=== PATIENT | female | born 1965 | race Caucasian/White ===

== ENCOUNTER 2021-05-05 09:07 | Outpatient (CLI) | payer BC ==
[2021-05-05] VITALS (7 sets, daily range): BP systolic 119–134; BP diastolic 62–75; PULSE 44–58; TEMP 97.9
[~2021-05-05] VITALS: Ht 180.3 cm; Wt 96.8 kg
[2021-05-05] MEDS ORDERED: MIRAPEX ER1.5 MG PO (09:48)
[2021-05-05] MEDS ORDERED: SINGULAIR 110 MG/TAB PO (09:49)
[2021-05-05] MEDS ORDERED: DESYREL 50MG50 MG PO (09:49)
[2021-05-05] MEDS ORDERED: XYZAL5 MG PO (09:49)
[2021-05-05] MEDS ORDERED: NEURONTIN100 MG/CAP PO (09:50)
[2021-05-05] MEDS ORDERED: EFFEXOR XR75 MG/CAP PO (09:51)
[2021-05-05] MEDS ORDERED: BREO ELLIPTA 21 EACH IH (09:51)
[2021-05-05] MEDS ORDERED: FLONASE SENSIM9.9 ML NS (09:52)
[2021-05-05] MEDS ORDERED: PROAIR HFA0.09 MG/AC IH (09:54)
[2021-05-05 11:19] LABS: GLUCOSE,CSF 50 mg/dL (40-70); TOTAL PROTEIN,CSF 26 mg/dL (15-45)
[2021-05-05 11:36] LABS: CSF APPEARANCE CLEAR; CSF COLOR COLORLESS; CSF MONONUCLEAR 100 % (70-100); CSF POLYMORPHONUCLEAR 0 % (0-6); CSF RBC 1 /mm3 (0-0)
--- NOTE | 2021-05-05 12:21 | NUR ---
Discharge instructions given to pt.Pt verbalizes understanding.Pt escorted out by this nurse.
[2021-05-11 14:19] LABS: ALBUMUN SERUM 3900 mg/dL (()); IGG,SERUM 879 mg/dL (()); IGG/ALBUMIN SERUM 0.23 (<=0.40)
[2021-05-11 15:06] LABS: ALBUMIN CSF 9.1 mg/dL (<=27.0)
[2021-05-11 15:11] LABS: CSF OLIG BD INTERPRETATION 0 bands (<2); SE OLIGOCLONAL BANDING 4 bands (())
[2021-05-11 15:15] LABS: CSF IGG/ALBUMIN 0.13 (<=0.21); CSF,IGG 1.2 mg/dL (<=8.1); CSF-IGG INDEX 0.57 (<=0.85)
== END 2021-05-05 13:22 ==
LOC: COL.RAD 09:07
PROVIDERS: Psychiatry & Neurology Neurology
DX: R26.81 Unsteadiness on feet (principal); G37.9 Demyelinating disease of central nervous system, unspecified